=== PATIENT | female | born 1995 | race Two or more races ===

== ENCOUNTER 2022-08-24 23:56 | Emergency (ER) | payer MEDICAID ==
[~2022-08-24] VITALS: Ht 177.8 cm; Wt 90.5 kg
[2022-08-25 00:30] VITALS: BP 128/69
[2022-08-25 02:07] LABS: Basophils # (auto) 0.1 10 ^3/uL (0-0.2); Basophils % (auto) 0.5 % (0.0-2.0); Eosinophils # (auto) 0.1 10 ^3/uL (0-0.8); Eosinophils % (auto) 0.8 % (0.0-7.0); Hematocrit 37.6 % (36.0-46.0); Hemoglobin 12.6 g/dL (12.2-16.2); Lymphocytes # (auto) 2.5 10 ^3/uL (0.4-5.4); Lymphocytes % (auto) 18.7 % (10.0-50.0); Mean Corpuscular Hemoglobin 29.3 pg (28.0-32.0); Mean Corpuscular Hgb Conc. 33.6 g/dL (32.0-36.0); Mean Corpuscular Volume 87.2 fL (80.0-100.0); Monocytes # (auto) 0.8 10 ^3/uL (0-1.3); Monocytes % (auto) 6.2 % (0.0-12.0); Neutrophils # (auto) 10.1 10 ^3/uL (1.6-8.6); Neutrophils % (auto) 73.8 % (37.0-80.0); Red Blood Cells 4.31 10^6/uL (4.0-5.20); Red Cell Distribution Width 13.1 % (11.8-14.3); White Blood Cell 13.6 10^3/uL (4.4-10.8)
[2022-08-25 02:24] LABS: Albumin 3.7 g/dL (3.4-5.0); BUN/Creatinine Ratio 17.3; Calcium 8.8 mg/dL (8.5-10.1); Potassium 4.1 mmol/L (3.5-5.1)
[2022-08-25 02:27] LABS: Bilirubin, Total 0.3 mg/dL (0.2-1.0); Total Protein 6.9 g/dL (6.4-8.2)
[2022-08-25 03:51] LABS: Urine Bacteria FEW /hpf (None Seen); Urine Blood 2+ /uL (Negative); Urine Specific Gravity 1.016 (1.001-1.035); Urine WBC 7 /hpf (0 - 5)
[2022-08-25] MEDS ORDERED: CEPH-322 PO (07:26)
[2022-08-25] MEDS ORDERED: SODIUM CHLORIDE 0.9% 250 ML IV ONE (07:45)
[2022-08-25] MEDS ORDERED: ONDANSETRON HCL 4 MG/2 ML VIAL IV ONE (07:45)
== END 2022-08-25 08:05 | disposition left against medical advice (07) ==
LOC: ER 08-25 00:08
DX: O46.91 Antepartum hemorrhage, unspecified, first trimester (principal); O23.41 Unspecified infection of urinary tract in pregnancy, first trimester; O26.891 Other specified pregnancy related conditions, first trimester; R10.2 Pelvic and perineal pain; Z3A.01 Less than 8 weeks gestation of pregnancy; Z53.29 Procedure and treatment not carried out because of patient's decision for other reasons
CPT/HCPCS: 36415; 76801; 80053; 81001; 84702; 85025

== ENCOUNTER 2023-04-02 21:42 | Observation (INO) | payer MEDICAID ==
[~2023-04-02] VITALS: Ht 175.3 cm; Wt 99.8 kg
[~2023-04-02 21:42] MED LIST: CEPH-322 PO
== END 2023-04-03 00:28 | disposition home or self-care (01) ==
LOC: LDRP 21:42
PROVIDERS: ADMIT Obstetrics & Gynecology; ATTEND Obstetrics & Gynecology
DX: O62.9 Abnormality of forces of labor, unspecified (principal); O42.92 Full-term premature rupture of membranes, unspecified as to length of time between rupture and onset of labor; O99.891 Other specified diseases and conditions complicating pregnancy; M54.9 Dorsalgia, unspecified; Z3A.38 38 weeks gestation of pregnancy
CPT/HCPCS: 59025; 76818; 81002; 84112; G0378; Q0114

== ENCOUNTER 2023-04-11 06:45 | Observation (INO) | payer MEDICAID ==
[2023-04-11] MEDS ORDERED: PREN-96 PO (08:27)
== END 2023-04-11 08:40 | disposition home or self-care (01) ==
LOC: LDRP 06:45
PROVIDERS: ADMIT Obstetrics & Gynecology; ATTEND Obstetrics & Gynecology
DX: O26.893 Other specified pregnancy related conditions, third trimester (principal); R10.9 Unspecified abdominal pain; O26.853 Spotting complicating pregnancy, third trimester; O62.9 Abnormality of forces of labor, unspecified; Z3A.39 39 weeks gestation of pregnancy
CPT/HCPCS: 59025; 81002; G0378

== ENCOUNTER 2023-04-13 11:45 | Inpatient (IN) | payer MEDICAID ==
[~2023-04-13] VITALS: Ht 175.3 cm; Wt 100.7 kg
[~2023-04-13 11:45] MED LIST changes: +PREN-96 PO
[2023-04-13] MEDS ORDERED: WITCH HAZEL-GLYCERIN PAD TOP PRN (13:15)
[2023-04-13] MEDS ORDERED: PHISODERM TOP SOLN 240ML BTL TOP PRN (13:15)
[2023-04-13] MEDS ORDERED: DERMOPLAST 60ML BOTTLE TOP PRN (13:15)
[2023-04-13] MEDS ORDERED: PROMETHAZINE HCL 25 MG/ML 1ML IV PRN (13:15)
[2023-04-13] MEDS ORDERED: BUTORPHANOL TARTRATE 2 MG/1 ML VIAL IV PRN ×2 (13:15)
[2023-04-13] MEDS ORDERED: LIDOCAINE 2%HCL (LOCAL ANESTH.) INJ 20ML MDV IJ PRN (13:15)
[2023-04-13 13:49] LABS: Basophils # (auto) 0.1 10 ^3/uL (0-0.2); Basophils % (auto) 0.5 % (0.0-2.0); Eosinophils # (auto) 0 10 ^3/uL (0-0.8); Eosinophils % (auto) 0.4 % (0.0-7.0); Hemoglobin 13.3 g/dL (12.2-16.2); Lymphocytes # (auto) 1.9 10 ^3/uL (0.4-5.4); Mean Corpuscular Hemoglobin 29.7 pg (28.0-32.0); Mean Corpuscular Volume 87.2 fL (80.0-100.0); Monocytes # (auto) 0.6 10 ^3/uL (0-1.3); Monocytes % (auto) 5.8 % (0.0-12.0); Neutrophils # (auto) 8.4 10 ^3/uL (1.6-8.6); Neutrophils % (auto) 76.3 % (37.0-80.0); Nucleated Red Blood Cells % 0.6 %; Red Blood Cells 4.48 10^6/uL (4.0-5.20); Red Cell Distribution Width 13.1 % (11.8-14.3)
[2023-04-13] MEDS ORDERED: PENICILLIN G POT 5MIL/D5 50ML 50 ML IV ONE (14:00)
[2023-04-13 14:02] LABS: Albumin 2.4 g/dL (3.4-5.0); Calcium 8.9 mg/dL (8.5-10.1); Potassium 3.7 mmol/L (3.5-5.1)
[2023-04-13 14:06] LABS: BUN/Creatinine Ratio 20.4 (10.0-20.0); Bilirubin, Total 0.3 mg/dL (0.2-1.0); Total Protein 6.5 g/dL (6.4-8.2)
[2023-04-13 14:09] LABS: INR 0.85 (0.9-1.15)
[2023-04-13] MEDS: miSOPROStol 50 MCG per PRE-CUT 1/2 TAB PO PRN ×3 (14:30→23:10)
[2023-04-13] MEDS ORDERED: FAMOTIDINE 20 MG TAB PO SCH (15:30)
[2023-04-13] MEDS: LACTATED RINGER'S 1,000 ML IV SCH (15:57)
[2023-04-13] MEDS: PENICILLIN G POTASSIUM 2,500,000 UNITS in D5W 5% 50 ML IV SCH ×2 (18:16→22:00)
[2023-04-13] MEDS ORDERED: miSOPROStol 100 mcg TAB SL PRN (19:45)
[2023-04-13] MEDS ORDERED: CARBOPROST TROMETHAMINE 250 MCG/1ML VIAL IM PRN (19:45)
[2023-04-13] MEDS ORDERED: DIPHENOXYLATE W/ATROPINE 2.5 MG TAB PO SCH (22:00)
[2023-04-14] MEDS: LACTATED RINGER'S 1,000 ML IV SCH ×2 (00:33→03:36)
[2023-04-14] MEDS ORDERED: ROPIVACAINE HCL 200 ML EPI STA (01:57)
[2023-04-14] MEDS ORDERED: ePHEDrine SULFATE 50 MG/ML AMP IV ONE (02:00)
[2023-04-14] MEDS ORDERED: NALOXONE HCL 0.4 MG/ML VIAL IV ONE (02:00)
[2023-04-14] MEDS ORDERED: LACTATED RINGER'S 500 ML IV ONE (02:00)
[2023-04-14] MEDS: PENICILLIN G POTASSIUM 2,500,000 UNITS in D5W 5% 50 ML IV SCH ×4 (02:00→10:22)
[2023-04-14 04:06] LABS: Urine Bacteria NONE SEEN /hpf (None Seen); Urine Blood 3+ /uL (Negative); Urine Specific Gravity 1.007 (1.001-1.035); Urine WBC 7 /hpf (0 - 5)
[2023-04-14] MEDS: miSOPROStol 50 MCG per PRE-CUT 1/2 TAB PO PRN (04:11)
[2023-04-14 04:15] LABS: Alcohol, Urine < 3.0 mg/dL (0-10); Amphetamine Screen, Urine NEGATIVE (NEGATIVE); Barbiturate Scree,Urine NEGATIVE (NEGATIVE); Benzodiazephine Screen, Urine NEGATIVE (NEGATIVE); Cannabinoid Screen, Urine NEGATIVE (NEGATIVE); Cocaine Screen, Urine NEGATIVE (NEGATIVE); Opiate Scree,Urine NEGATIVE (NEGATIVE); Phencyclidine Screen, Urine NEGATIVE (NEGATIVE)
[2023-04-14 08:06] LABS: RPR Non Reactive (Non Reactive)
[2023-04-14] MEDS ORDERED: LACT. RINGERS/OXYTOCIN 20UNITS 500 ML IV ONE ×2 (09:30→10:00)
[2023-04-14] MEDS ORDERED: LIDOCAINE 2%HCL (LOCAL ANESTH.) INJ 10ml MDV ONE (14:22)
[2023-04-14] MEDS ORDERED: ONDANSETRON ODT 4 MG TAB PO PRN (15:00)
[2023-04-14] MEDS ORDERED: ACETAMINOPHEN 325 MG TAB PO PRN (15:00)
[2023-04-14] MEDS: IBUPROFEN 800 MG TAB PO SCH (16:37)
[2023-04-14 19:00] VITALS: BP 120/69
[2023-04-14] MEDS ORDERED: DOCUSATE SOD 100 MG CAP PO SCH (22:00)
[2023-04-14 23:00] VITALS: BP 110/75
[2023-04-15] MEDS: IBUPROFEN 800 MG TAB PO SCH ×2 (01:36→07:35)
[2023-04-15 03:17] VITALS: BP 120/77
[2023-04-15 07:05] VITALS: BP 124/79
[2023-04-15 11:19] VITALS: BP 107/62
[2023-04-15 15:15] VITALS: BP 122/91
== END 2023-04-15 18:30 | disposition home or self-care (01) | DRG 560 ==
LOC: LDRP 11:45
PROVIDERS: ADMIT Obstetrics & Gynecology; ATTEND Obstetrics & Gynecology
PROC: 10D07Z6 Extraction of Products of Conception, Vacuum, Via Natural or Artificial Opening (ICD-10-PCS; principal; 2023-04-14)
PROC: 0HQ9XZZ Repair Perineum Skin, External Approach (ICD-10-PCS; 2023-04-14)
PROC: 3E0R3BZ Introduction of Anesthetic Agent into Spinal Canal, Percutaneous Approach (ICD-10-PCS; 2023-04-14)
PROC: 00HU33Z Insertion of Infusion Device into Spinal Canal, Percutaneous Approach (ICD-10-PCS; 2023-04-14)
DX: O48.0 Post-term pregnancy (principal); Z37.0 Single live birth; O41.03X0 Oligohydramnios, third trimester, not applicable or unspecified; O69.81X0 Labor and delivery complicated by cord around neck, without compression, not applicable or unspecified; O70.0 First degree perineal laceration during delivery; O76 Abnormality in fetal heart rate and rhythm complicating labor and delivery; O99.824 Streptococcus B carrier state complicating childbirth; O66.0 Obstructed labor due to shoulder dystocia; Z3A.40 40 weeks gestation of pregnancy
CPT/HCPCS: 36415; 59025; 59409; 62282; 80053; 80307; 81001; 85025; 85610; 85730; 86592; 86850; 86900; 86901; 94760; 94762; 96360; 96361; 96365; 96366; G0378; J2001; J2540; J2590; J7060